=== PATIENT | male | born 1940 | race Caucasian/White ===

== ENCOUNTER 2016-12-18 21:45 | Inpatient (IN) | payer MEDICARE, OTHER ==
[~2016-12-18] VITALS: Ht 180.3 cm; Wt 81.5 kg
[~2016-12-18 21:45] MED LIST: ASPI81TA82 PO; ATOR20TA42 PO; CARV12.52 PO; CEPH500C3 PO; DIGO0.12 PO; HYDR-3129 PO; NITR0.4S SL; PRAS10TA PO; PROSTAB PO
[2016-12-18 21:46] VITALS: RESP 18; O2SAT 100
[2016-12-18 21:48] VITALS: BP 193/103; PULSE 88; RESP 18; O2SAT 98
[2016-12-18] MEDS ORDERED: SODIUM CHLOR 0.9% 1000 ML INJ 1,000 ML IV ONE (21:56)
[2016-12-18 21:57] VITALS: BP 183/85; PULSE 73; RESP 18; O2SAT 98
[2016-12-18] MEDS ORDERED: niCARdipine INJ 25 MG in SODIUM CHLOR 0.9% 250 ML INJ 250 ML IV ONE (22:00)
--- NOTE | 2016-12-18 22:04 | PD ---
HPI Chief Complaint: Neuro Symptoms/ Deficits Time Seen by Provider: 21:56 Travel History International Travel<30 days: No Contact w/Intl Traveler<30days: No Traveled to known affect area: No History of Present Illness HPI The patient is a 76 year old male who presents to the [facility] emergency department with a history of being called in as a stroke alert prior to arrival due to onset of reported "expressive aphasia" 2 hours prior to arrival, at approximately 1945. According to ambulance services the patient's reported that he has not been well over the last 2 days. He has been confused. He has had a reported headache along the left mormonism and nausea. 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 Patient has a history of coronary artery disease status post stent placement and is on an adult aspirin daily and Effient. The patient's blood pressure prior to arrival was reportedly 204/106. The patient's blood sugar prior to arrival was 107. The patient on arrival is awake and alert. The patient reports that his age is 57 and he reports that the year is 1945, however otherwise the patient is oriented and able to speak clearly. He is able to name various objects around the room. The patient is slightly confused and has to be redirected for his neurologic examination, however he is able to follow commands and has strength that is 5 over 5 in all 4 extremities. He has intact sensation over all dermatomes. The patient denies any recent fevers, cough, congestion, neck pain, chest pain, shortness of breath, abdominal pain, vomiting, diarrhea, urinary symptoms, or other neurologic symptoms. 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 Arthritis: Yes (lower back) Asthma: Yes (as a child) Blood Disorders: No Anxiety: No Depression: No Heart Rhythm Problems: Yes Cancer: No Cardiovascular Problems: Yes High Cholesterol: Yes Chemotherapy: No Chest Pain: Yes Congestive Heart Failure: Yes COPD: No Cerebrovascular Accident: No Diminished Hearing: Yes (approx 50% loss bilat/hearing aids at home) Endocrine: No Genitourinary: No Headaches: No Immune Disorder: No Musculoskeletal: No Neurologic: No Psychiatric: No Reproductive: No Respiratory: No Migraines: No Myocardial Infarction: Yes Radiation Therapy: Yes Seizures: No Sleep Apnea: No Past Surgical History Narrative Surgical The patient's past surgical history is significant for an AICD placement, cardiac catheterization with stent placement, prostate cancer surgery. Abdominal Surgery: No Cardiac Surgery: Yes (stents x 2 in lad) Genitourinary Surgery: Yes (prostate) Gynecologic Surgery: No Pacemaker: No Thoracic Surgery: No Social History Alcohol Use: Yes (3-4 beers per day) Tobacco Use: No Substance Use: No Allergies-Medications (Allergen,Severity, Reaction): Coded Allergies: Sudafed (Verified Allergy, Severe, swelling, 12/18/16) Sulfa (Verified Allergy, Severe, 12/18/16) Reported Meds & Prescriptions Reported Meds & Active Scripts Active Reported Digoxin 0.125 Mg Tab 0.125 Mg PO DAILY Atorvastatin (Atorvastatin Calcium) 20 Mg Tab 20 Mg PO HS Effient (Prasugrel) 10 Mg Tab 10 Mg PO DAILY Carvedilol 25 Mg Tab 25 Mg PO BID Ibuprofen 200 Mg Tab 200 Mg PO Q6H PRN Aspirin 81 Mg Tabdr 81 Mg PO DAILY [place]-3 Fish Oil/Vitamin (Fish Oil-Cholecalciferol) 1,000-1,000 Mg Cap 1 Cap PO DAILY Calcium 600 with Vitamin D (Calcium Carbonate-Cholecalciferol) 600-400 mg-Unit Tab 1 Tab PO DAILY Review of Systems Except as stated in HPI: all other systems reviewed are Neg General / Constitutional: No: Fever Eyes: No: Visual changes HENT: Positive: Headaches, No: Congestion, Neck Stiffness, Neck Pain Cardiovascular: No: Chest Pain or Discomfort Respiratory: No: Shortness of Breath Gastrointestinal: Positive: Nausea, Loss of Appetite, No: Vomiting, Diarrhea, Abdominal Pain, Changes in Bowel Habits, Indigestion Genitourinary: No: Dysuria Musculoskeletal: No: Pain Skin: No Rash Neurologic: Positive: Change in Mentation, No: Weakness, Focal Abnormalities, Slurred Speech, Sensory Disturbance Psychiatric: No: Depression Endocrine: No: Polydipsia Hematologic/Lymphatic: No: Easy Bruising Physical Exam Narrative General: The patient is well-developed well-nourished male in no acute distress. Head and Neck exam: Head is normocephalic atraumatic. Eyes: EOMI, pupils are equal round and reactive to light. Nose: Midline septum with pink mucous membranes Mouth: Dentition unremarkable. Moist mucus membranes. Posterior oropharynx is not erythematous. No tonsillar hypertrophy. Uvula midline. Airway patent. Neck: No palpable lymphadenopathy. No nuchal rigidity. No thyromegaly. Cardiovascular: Regular rate and rhythm without murmurs, gallops, or rubs. No pulse deficit to the extremities. Lungs: Clear to auscultation bilaterally. No wheezes, rhonchi, or rales. Abdomen: Soft, without tenderness to palpation in all 4 quadrants of the abdomen. No guarding, rebound, or rigidity. Normal bowel sounds are audible. No tenderness on palpation of McBurney's point. Extremities: No clubbing, cyanosis, or edema. 2+ pulses in all 4 extremities. No calf tenderness on palpation. Back: No costovertebral angle tenderness to palpation. Neurologic Exam: Cranial nerves 2-12 were intact on exam. Strength is 5/5 in all 4 extremities. No sensory deficits noted. No dysdiadochokinesis. Good finger to nose and Heel to ly bilaterally. The patient has to be redirected frequently to follow commands, however he is able to complete his neuro exam. He is able to name various objects around the room. He is able to repeat phrases. The patient is confused as to his age and the year. He is able to name the president. Skin Exam: No rash noted. Intact skin that is warm and dry. Data Data Last Documented VS Vital Signs Date Time Temp Pulse Resp B/P Pulse Ox O2 Delivery O2 Flow Rate FiO2 12/18/16 23:18 70 16 171/80 98 Nasal Cannula 2 Orders Activity Bed Rest (12/18/16 ) Electrocardiogram (12/18/16 ) I-Stat Creatinine (12/18/16 21:56) I-Stat Profile (12/18/16 21:56) Prothrombin Time / Inr (Pt) (12/18/16 21:56) Act Partial Throm Time (Ptt) (12/18/16 21:56) Complete Blood Count With Diff (12/18/16 21:56) Fibrinogen (12/18/16 21:56) Creatine Kinase (Cpk) (12/18/16 21:56) Troponin I (12/18/16 21:56) Ua Includes Microscopic (12/18/16 21:56) Drug Screen, Random Urine (12/18/16 21:56) Type And Screen (12/18/16 21:56) Ct Brain W/O Iv Contrast(Rout) (12/18/16 ) Cta Brain W Iv Contrast W 3d (12/18/16 21:56) Cta Neck W Iv Contrast W 3d (12/18/16 21:56) Consult Neurology (12/18/16 ) Blood Glucose (12/18/16 21:56) Ecg Monitoring (12/18/16 21:56) Neuro Checks Q2HX12,Q4H (12/18/16 21:56) Nursing Bedside Swallow Assess .ONCE (12/18/16 21:56) Iv Access Insert/Monitor (12/18/16 21:56) NPO (12/18/16 21:56) Oximetry (12/18/16 21:56) Oxygen Administration (12/18/16 21:56) Sodium Chlor 0.9% 1000 Ml Inj (Ns 1000 M (12/18/16 21:56) Resp Oxygen Peter C Titrat 1-4 L (12/18/16 21:56) Cath For Specimen (12/18/16 21:56) Nicardipine Inj (Cardene Inj) (12/18/16 22:00) Nicardipine Inj (Cardene Inj) (12/18/16 22:04) Iohexol 350 Inj (Omnipaque 350 Inj) (12/18/16 22:06) (Hub Use Only)Inp Phy Cons/Ref (12/18/16 22:07) Ondansetron Inj (Zofran Inj) (12/18/16 22:11) Morphine Inj (Morphine Inj) (12/18/16 22:45) Ondansetron Inj (Zofran Inj) (12/18/16 22:45) Chest, Single Ap (12/18/16 23:16) Admit Order (Ed Use Only) (12/18/16 23:18) Ammonia (12/18/16 23:18) Hepatic Functional Panel (12/18/16 21:49) Labs Laboratory Tests Test 12/18/16 12/18/16 21:49 23:05 White Blood Count 11.1 TH/MM3 Red Blood Count 4.59 MIL/MM3 Hemoglobin 14.1 GM/DL Hematocrit 40.3 % Mean Corpuscular Volume 87.6 FL Mean Corpuscular Hemoglobin 30.8 PG Mean Corpuscular Hemoglobin 35.1 % Concent Red Cell Distribution Width 13.3 % Platelet Count 292 TH/MM3 Mean Platelet Volume 7.6 FL Neutrophils (%) (Auto) 75.2 % Lymphocytes (%) (Auto) 16.1 % Monocytes (%) (Auto) 6.4 % Eosinophils (%) (Auto) 1.6 % Basophils (%) (Auto) 0.7 % Neutrophils # (Auto) 8.4 TH/MM3 Lymphocytes # (Auto) 1.8 TH/MM3 Monocytes # (Auto) 0.7 TH/MM3 Eosinophils # (Auto) 0.2 TH/MM3 Basophils # (Auto) 0.1 TH/MM3 CBC Comment DIFF FINAL Differential Comment Prothrombin Time 11.3 SEC Prothromb Time International 1.0 RATIO Ratio Activated Partial 28.4 SEC Thromboplast Time Fibrinogen 324 mg/dL Blood Type O POSITIVE Antibody Screen NEGATIVE Bedside Hemoglobin 14.6 G/DL Bedside Hematocrit 43.0 % Bedside Sodium 140 MMOL/L Bedside Potassium 3.7 MMOL/L Bedside Chloride 98 MMOL/L Bedside Blood Urea Nitrogen 13 MG/DL Bedside Creatinine 0.7 MG/DL Bedside Glucose 127 MG/DL Total Bilirubin 0.6 MG/DL Direct Bilirubin 0.1 MG/DL Indirect Bilirubin 0.5 MG/DL Aspartate Amino Transf 18 U/L (AST/SGOT) Alanine Aminotransferase 27 U/L (ALT/SGPT) Alkaline Phosphatase 125 U/L Total Creatine Kinase 86 U/L Troponin I LESS THAN 0.02 NG/ML Total Protein 7.4 GM/DL Albumin 3.9 GM/DL Urine Color LIGHT-YELLOW Urine Turbidity CLEAR Urine pH 8.0 Urine Specific May[place] 1.039 Urine Protein NEG mg/dL Urine Glucose (UA) NEG mg/dL Urine Ketones NEG mg/dL Urine Occult Blood NEG Urine Nitrite NEG Urine Bilirubin NEG Urine Urobilinogen LESS THAN 2.0 MG/DL Urine Leukocyte Esterase NEG Urine RBC 2 /hpf Urine WBC LESS THAN 1 /hpf Urine Opiates Screen NEG Urine Barbiturates Screen NEG Urine Amphetamines Screen NEG Urine Benzodiazepines Screen NEG Urine Cocaine Screen NEG Urine Cannabinoids Screen NEG MDM Medical Screen Exam Complete: Yes Emergency Medical Condition: Yes Medical Record Reviewed: Yes EKG Prior to Arrival: Yes Differential Diagnosis Ischemic stroke, versus intracranial mass, versus delirium related to an infectious process, versus metabolic encephalopathy, versus hypertensive encephalopathy, versus hemorrhagic stroke. Narrative Course During the course of the patients emergency department visit, the patients history, examination, and differential diagnosis were reviewed with the patient. The patient had IV access obtained and blood work sent for analysis. The patient was placed on a can repairer with oximetry and blood pressure monitoring. The patient's head of the bed was placed flat. The patient was started on normal saline at 70 mL per hour. Patient's blood pressure on arrival is 193/103. The patient will be started on a Cardene drip, low dose. The patient was accompanied by me to CT scan. The patient's EKG on arrival reveals a sinus rhythm heart rate of 75, no acute ST segment elevation or depression. T waves are inverted in V4, V5. QRS duration is 93 ms, QTC 403 ms. the patient's case was discussed immediately with . Given the patient's neurologic findings at this time, he agreed that the patient did not have an expressive aphasia. The patient had more of an altered mentation with delirium. However stroke alert was called prior to arrival, therefore we proceeded with imaging. The patient was initially provided normal saline at 70 mL per hour, head of the bed was placed flat. The patients laboratory studies were reviewed and remarkable for white count was 11.1, hemoglobin 14.6, platelets 292 with 75.2 neutrophils, CMP was remarkable for a creatinine of 0.7, glucose 127, liver function tests were remarkable for an alkaline phosphatase of 125, initial set of cardiac enzymes were negative, ammonia level for altered mentation was within normal limits at 17, PT 11.3, PTT 28.4, fibrinogen 320, urine drug screen was negative, urinalysis showed concentrated urine otherwise unremarkable. Radiology studies were reviewed and remarkable for a chest x-ray that shows cardiomegaly and findings of vascular congestion without overt failure. CT scan of the brain shows no acute evidence of bleeding, mild ventriculomegaly that is nonspecific, right maxillary sinus disease. CTA of the brain shows no acute abnormality CTA of the neck shows mild right and minimal left atherosclerosis of the carotid bifurcation without significant narrowing. No dissection or thrombosis, mild and very focal atherosclerosis involving origins of both vertebral arteries without evidence of significant narrowing. The left vertebral artery is dominant. The patient's case was again discussed with Dr. Schwarz. He agreed with the plan to continue the patient on his usual medication regimen including aspirin and Effient. The patient's case was discussed with Dr. Smyth, the patient's primary care physician of record. He did agree to admit the patient for further evaluation and treatment at this time. The patients results were discussed with the patient, including the plan of care. I explained that further testing and/ or monitoring is indicated based on the patients history, examination, and/ or laboratory findings. Therefore, I recommended admission for additional evaluation. The patient expressed understanding and was agreeable with this plan. The patient was admitted to the hospital in guarded condition and sent to a bed under the care of Dr. Smyth Stroke Alert NIHSS NIH Stroke Scale Result: 2 NIHSS Time Completed: 22:[address] Phys[address] Communication [address] Harper, 10:04PM, negative for hemorrhagic stroke. The patient's case is discussed with Dr. Schwarz as stated above in the narrative course. The patient's case is discussed with Dr. Smyth who did agree to admit the patient. Diagnosis Diagnosis: Primary Impression: Altered mental status Qualified Code: R41.0 - Delirium Admitting Physician Requests: Radha Alcaraz MD December 18, 2016 22:04
[2016-12-18 22:05] LABS: AUTOMATED NEUTROPHIL # 8.4 TH/MM3 (1.8-7.7); BASOPHIL # 0.1 TH/MM3 (0-0.2); BASOPHIL % 0.7 % (0.0-2.0); EOSINOPHIL # 0.2 TH/MM3 (0-0.4); EOSINOPHIL % 1.6 % (0.0-4.0); HEMATOCRIT 40.3 % (39.0-51.0); HEMO FLAGS DIFF FINAL; LYMPH % 16.1 % (9.0-44.0); LYMPHOCYTE # 1.8 TH/MM3 (1.0-4.8); MEAN CELL VOLUME 87.6 FL (80.0-100.0); MEAN CORPUSCULAR HEMOGLOBIN 30.8 PG (27.0-34.0); MEAN CORPUSCULAR HGB CONC 35.1 % (32.0-36.0); MONO % 6.4 % (0.0-8.0); NEUT % 75.2 % (16.0-70.0); PLATELET COUNT 292 TH/MM3 (150-450); RED BLOOD COUNT 4.59 MIL/MM3 (4.50-5.90); RED CELL DISTRIBUTION WIDTH 13.3 % (11.6-17.2); WHITE BLOOD COUNT 11.1 TH/MM3 (4.0-11.0)
[2016-12-18] MEDS ORDERED: IOHEXOL 350 MG/ML 10 ML VIAL (for RAD DIAG) IV ONE (22:06)
--- NOTE | 2016-12-18 22:08 | RADRPT ---
EXAM DATE/TIME: 12/18/2016 21:58 [facility] COMPARISON: No previous studies available for comparison. INDICATIONS : Stroke alert; expressive aphasia and confusion. RADIATION DOSE: 53.04 CTDIvol (mGy) This report was called by Dr. Harper to Dr. Morales at 10: 03 PM MEDICAL HISTORY : None SURGICAL HISTORY : None. ENCOUNTER: Initial ACUITY: 1 day PAIN SCALE: 0/10 LOCATION: cranial TECHNIQUE: Multiple contiguous axial images were obtained of the head. Using automated exposure control and adj ustment of the mA and/or kV according to patient size, radiation dose was kept as low as reasonably a chievable to obtain optimal diagnostic quality images. FINDINGS: No intracranial hemorrhage or hematoma. No mass, mass effect or midline shift. Subcentimeter lacunar infarcts are seen of the periventricular white matter and near the genu of the corpus callosum. Mild ventriculomegaly. No evidence of an acute or subacute infarction. There is mucoperiosteal thickening at the floor of the visualized right maxillary air cell. CONCLUSION: 1. No bleed or other acute intracranial abnormality demonstrated. 2. Mild ventriculomegaly, nonspecific. 3. Right maxillary sinus disease. Wisam Harper MD on December 18, 2016 at 22:03 Board Certified Radiologist. This report was verified electronically.
[2016-12-18] MEDS ORDERED: ONDANSETRON HCL 4 MG/2 ML VIAL ONE (22:11)
[2016-12-18 22:14] VITALS: BP 205/87; PULSE 79; RESP 18; O2SAT 100
--- NOTE | 2016-12-18 22:24 | RADRPT ---
EXAM DATE/TIME: 12/18/2016 22:03 [facility] COMPARISON: No previous studies available for comparison. INDICATIONS : Stroke alert; expressive aphasia and confusion. IV CONTRAST: 100 cc Omnipaque 350 (iohexol) IV ; Cumulative dose for multiple exams. RADIATION DOSE: 28.83 CTDIvol (mGy) ; Combined studies MEDICAL HISTORY : None SURGICAL HISTORY : None. ENCOUNTER: Initial ACUITY: 1 day PAIN SCALE: 0/10 LOCATION: cranial TECHNIQUE: Volumetric scanning was performed using a multi-row detector CT scanner. The data was post processed with a variety of visualization algorithms including full volume maximum intensity projection, multi -planar sliding thin slab reformation, curved planar reformation, and surface rendering techniques. Using automated exposure control and adjustment of the mA and/or kV according to patient size, radiat ion dose was kept as low as reasonably achievable to obtain optimal diagnostic quality images. FINDINGS: There is excellent visualization of the major intracranial arteries out to the second-order branch ve ssels. There is no evidence for aneurysm, vessel truncation or stenosis, and no evidence for vascula r malformation. CONCLUSION: Normal intracranial arteries. No thrombosis. Wisam Harper MD on December 18, 2016 at 22:22 Board Certified Radiologist. This report was verified electronically.
[2016-12-18] MEDS ORDERED: DIGO0.12 PO (22:26)
[2016-12-18] MEDS ORDERED: IBUP200T2 PO (22:26)
[2016-12-18] MEDS ORDERED: PRAS10TA PO (22:26)
[2016-12-18] MEDS ORDERED: CARV25TA PO (22:26)
[2016-12-18] MEDS ORDERED: OMEGCAP PO (22:26)
[2016-12-18] MEDS ORDERED: CALC1TAB87 PO (22:26)
[2016-12-18] MEDS ORDERED: ASPI1TAB69 PO (22:26)
[2016-12-18] MEDS ORDERED: ATOR20TA15 PO (22:26)
[2016-12-18 22:30] LABS: I-STAT POTASSIUM 3.7 MMOL/L (3.5-4.9); I-STAT SODIUM 140 MMOL/L (138-146)
[2016-12-18 22:31] LABS: APTT (PATIENT) 28.4 SEC (24.3-30.1); CREATINE KINASE 86 U/L (39-308); PROTHROMBIN TIME - PATIENT 11.3 SEC (9.8-11.6)
[2016-12-18] MEDS ORDERED: ONDANSETRON HCL 4 MG/2 ML VIAL IV PUSH ONE (22:45)
[2016-12-18] MEDS ORDERED: MORPHINE SULFATE 4 MG/ML INJ IV PUSH ONE (22:45)
--- NOTE | 2016-12-18 22:48 | RADRPT ---
EXAM DATE/TIME: 12/18/2016 22:03 [facility] COMPARISON: No previous studies available for comparison. INDICATIONS : Stroke alert; expressive aphasia and confusion. IV CONTRAST: 100 cc Omnipaque 350 (iohexol) IV ; Cumulative dose for multiple exams. RADIATION DOSE: 28.83 CTDIvol (mGy) ; Combined studies MEDICAL HISTORY : None SURGICAL HISTORY : None. ENCOUNTER: Initial ACUITY: 1 day PAIN SCALE: 0/10 LOCATION: neck Elevated flow velocities and ICA/CCA ratios have been found to correlate with increased degrees of vessel stenosis, calculated as percentage of diameter relative to a normal segment of distal ICA/CCA. TECHNIQUE: Volumetric scanning was performed using a multirow detector CT scanner. The data was post processed with a variety of visualization algorithms including full-volume maximum intensity projection, multip lanar sliding thin-slab reformation, curved-planar reformation, and surface-rendering techniques. Us ing automated exposure control and adjustment of the mA and/or kV according to patient size, radiatio n dose was kept as low as reasonably achievable to obtain optimal diagnostic quality images. FINDINGS: AORTIC ARCH: There is a three-vessel origin of the great vessels from the aorta. No evidence of ostial narrowing. RIGHT CAROTID: The common carotid artery is intact. The carotid bulb has a normal configuration without ulceration o r narrowing. Mild soft and calcified plaque seen of the proximal internal carotid artery with an appr oximately 5 mm long 30% or less narrowing. LEFT CAROTID: The common carotid artery is intact. Minimal plaque seen in the bulb and proximal internal carotid ar mika without perceptible narrowing. The external carotid artery is intact. VERTEBRALS: Mild plaque at both origins without significant stenosis. Left vertebral artery is dominant. CONCLUSION: 1. Mild right and minimal left atherosclerosis of the carotid bifurcations without significant narrow ing. 2. No dissection or thrombosis. 3. Mild and very focal atherosclerosis involving the origins of both vertebral arteries without evide nce of significant narrowing. The left vertebral artery is dominant. Wisam Harper MD on December 18, 2016 at 22:43 Board Certified Radiologist. This report was verified electronically.
[2016-12-18 23:18] VITALS: BP 171/80; PULSE 70; RESP 16; O2SAT 98
[2016-12-18 23:32] LABS: BLOOD, URINE NEG (NEG); GLUCOSE,URINE NEG (NEG); KETONE, URINE NEG (NEG); NITRITE,URINE NEG (NEG); URINE COLOR LIGHT-YELLOW (YELLW/STRAW)
[2016-12-18 23:38] LABS: AMPHETAMINE, URINE NEG (NEG); BARBITURATES, URINE NEG (NEG); COCAINE, URINE NEG (NEG)
--- NOTE | 2016-12-18 23:44 | RADRPT ---
EXAM DATE/TIME: 12/18/2016 23:20 [facility] COMPARISON: No previous studies available for comparison. INDICATIONS : Altered Mental Status. MEDICAL HISTORY : None. SURGICAL HISTORY : Pacemaker. ENCOUNTER: Initial ACUITY: 1 day PAIN SCORE: 0/10 LOCATION: Bilateral chest FINDINGS: The cardiac silhouette is enlarged in transverse diameter. A defibrillator device is in place via a l eft sided approach. There is prominence of the central pulmonary vasculature with indistinct vascular margins compatible with vascular congestion but no evidence of overt failure. No pleural effusions a re identified. CONCLUSION: 1. Cardiomegaly and findings of vascular congestion without overt failure. Cosme Hicks MD on December 18, 2016 at 23:41 Board Certified Radiologist. This report was verified electronically.
[2016-12-18 23:57] LABS: AST (GOT) 18 U/L (15-37)
[2016-12-18 23:58] LABS: TOTAL BILIRUBIN ADULT 0.6 MG/DL (0.2-1.0)
[2016-12-19] VITALS (15 sets, daily range): BP systolic 124–180; BP diastolic 55–78; PULSE 60–84; RESP 16–21; TEMP 97.8–99.2; O2SAT 94–98
[2016-12-19] MEDS ORDERED: SODIUM CHLORIDE 0.9% FLUSH 10 ML FLUSH IV FLUSH PRN
[2016-12-19] MEDS ORDERED: NALOXONE HCL 0.4 MG/ML AMP IV PRN
[2016-12-19] MEDS ORDERED: ACETAMINOPHEN 325 MG TAB PO PRN
[2016-12-19 00:10] LABS: ALT (GPT) 27 U/L (12-78); INDIRECT BILIRUBIN 0.5 MG/DL (0.0-0.8)
[2016-12-19 00:11] LABS: ALKALINE PHOSPHATASE 125 U/L (45-117)
[2016-12-19] MEDS ORDERED: niCARdipine INJ 25 MG in SODIUM CHLOR 0.9% 250 ML INJ 250 ML IV ONE (00:30)
[2016-12-19 03:45] LABS: AUTOMATED NEUTROPHIL # 9.6 TH/MM3 (1.8-7.7); BASOPHIL # 0.1 TH/MM3 (0-0.2); BASOPHIL % 0.6 % (0.0-2.0); EOSINOPHIL % 0.3 % (0.0-4.0); HEMATOCRIT 38.9 % (39.0-51.0); HEMO FLAGS DIFF FINAL; LYMPH % 12.8 % (9.0-44.0); LYMPHOCYTE # 1.5 TH/MM3 (1.0-4.8); MEAN CELL VOLUME 87.4 FL (80.0-100.0); MEAN CORPUSCULAR HEMOGLOBIN 30.5 PG (27.0-34.0); MEAN CORPUSCULAR HGB CONC 34.9 % (32.0-36.0); MONO % 5.3 % (0.0-8.0); PLATELET COUNT 277 TH/MM3 (150-450); RED BLOOD COUNT 4.45 MIL/MM3 (4.50-5.90); RED CELL DISTRIBUTION WIDTH 13.6 % (11.6-17.2); WHITE BLOOD COUNT 11.8 TH/MM3 (4.0-11.0)
[2016-12-19 04:10] LABS: ALT (GPT) 22 U/L (12-78); ANION GAP 8 MEQ/L (5-15); AST (GOT) 16 U/L (15-37); BICARBONATE 26.7 MEQ/L (21.0-32.0); BLOOD UREA NITROGEN 11 MG/DL (7-18); CHLORIDE 102 MEQ/L (98-107); GLOMERULAR FILTRATION RATE 101 ML/MIN (>89); POTASSIUM 3.7 MEQ/L (3.5-5.1); SODIUM (NA) 137 MEQ/L (136-145)
[2016-12-19 04:12] LABS: ALKALINE PHOSPHATASE 108 U/L (45-117); TOTAL BILIRUBIN ADULT 0.7 MG/DL (0.2-1.0)
[2016-12-19] MEDS: ASPIRIN EC 81 MG TABEC PO SCH (08:29)
[2016-12-19] MEDS: SODIUM CHLORIDE 0.9% FLUSH 10 ML FLUSH IV FLUSH SCH ×2 (08:29→19:49)
[2016-12-19] MEDS: DIGOXIN 0.125 MG TAB PO SCH (08:29)
[2016-12-19] MEDS: PRASUGREL 10 MG TAB PO SCH (08:29)
[2016-12-19] MEDS: CARVEDILOL 12.5 MG TAB PO SCH ×2 (08:29→19:49)
--- NOTE | 2016-12-19 11:44 | HHI.HP ---
History of Present Illness Service Family Medicine Primary Care Physician Fredo Gandara M.D. Admission Diagnosis AMS, Delirium Diagnoses: History of Present Illness The patient is a 76 year old male who presents to the [facility] emergency department due to onset of reported expressive aphasia 2 hours prior to arrival according to records the patient's reported that he has not been well over the last 2 days. He has been confused. He has had a reported headache along the left spiritism and nausea. 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 Patient has a history of coronary artery disease status post stent placement and is on an adult aspirin daily and Effient. The patient's blood pressure prior to arrival to ER was reportedly 204/106. The The patient is awake and alert oriented except for year. The patient denies any recent fevers, cough, congestion, neck pain, chest pain, shortness of breath, abdominal pain, vomiting, diarrhea, urinary symptoms, or other neurologic symptoms. Review of Systems Constitutional: DENIES: Chills, Dizziness Respiratory: DENIES: Cough, Wheezing, Sputum production Cardiovascular: DENIES: Chest pain, Palpitations Gastrointestinal: DENIES: Constipation, Diarrhea, Nausea, Vomiting Musculoskeletal: DENIES: Stiffness, Back pain Neurologic: COMPLAINS OF: Localized weakness Psychiatric: COMPLAINS OF: Confusion, DENIES: Depression Past Family Social History Allergies: Coded Allergies: Sudafed (Verified Allergy, Severe, swelling, 12/18/16) Sulfa (Verified Allergy, Severe, 12/18/16) Past Medical History Arthritis: Yes (lower back) Heart Rhythm Problems: Yes High Cholesterol: Yes Chest Pain: Yes Congestive Heart Failure: Yes Diminished Hearing: Yes (approx 50% loss bilat/hearing aids at home) Myocardial Infarction: Yes Radiation Therapy: Yes Past Surgical History The patient's past surgical history is significant for an AICD placement, cardiac catheterization with stent placement, prostate cancer surgery. Genitourinary Surgery: Yes (prostate) Reported Medications Laboratory Tests Test 12/18/16 12/18/16 12/19/16 21:49 23:05 02:54 White Blood Count 11.1 TH/MM3 11.8 TH/MM3 (4.0-11.0) (4.0-11.0) Neutrophils (%) (Auto) 75.2 % 81.0 % (16.0-70.0) (16.0-70.0) Neutrophils # (Auto) 8.4 TH/MM3 9.6 TH/MM3 (1.8-7.7) (1.8-7.7) Bedside Creatinine 0.7 MG/DL (0.8-1.3) Bedside Glucose 127 MG/DL (60-95) Alkaline Phosphatase 125 U/L (45-117) Troponin I LESS THAN 0.02 NG/ML (0.02-0.05) Urine Specific [place] 1.039 (1.002-1.035) Red Blood Count 4.45 MIL/MM3 (4.50-5.90) Hematocrit 38.9 % (39.0-51.0) Random Glucose 148 MG/DL (74-106) Calcium Level 8.1 MG/DL (8.5-10.1) Active Ordered Medications Current Medications Medications (Trade) Dose Ordered Sig/Sandhya Route Start Time Stop Time Status Last Admin (NS 1000 ml Inj) 1,000 ml @ 70 mls/hr [id number] ONCE IV 12/18/16 21:56 12/19/16 12:13 12/18/16 22:49 (NS Flush) 2 ml UNSCH PRN IV FLUSH 12/19/16 00:00 (NS Flush) 2 ml BID IV FLUSH 12/19/16 09:00 12/19/16 08:29 (Tylenol) 650 mg Q4H PRN PO 12/19/16 00:00 (Narcan Inj) 0.4 mg UNSCH PRN IV 12/19/16 00:00 (Ecotrin Ec) 81 mg DAILY PO 12/19/16 09:00 12/19/16 08:29 (Lipitor) 20 mg HS PO 12/19/16 21:00 (Coreg) 25 mg BID PO 12/19/16 09:00 12/19/16 08:29 (Lanoxin) 0.125 mg DAILY PO 12/19/16 09:00 12/19/16 08:29 (Effient) 10 mg DAILY PO 12/19/16 09:00 12/19/16 08:29 Family History Mother and father non contributory Social History Quit smoking over 25 years ago ETOH: daily up to 4 drinks per day 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 Vital Signs Vital Signs Date Time Temp Pulse Resp B/P Pulse Ox O2 Delivery O2 Flow Rate FiO2 12/19/16 08:00 69 12/19/16 08:00 98.1 68 18 143/64 94 12/19/16 07:00 94 Room Air 12/19/16 06:00 68 12/19/16 04:00 66 12/19/16 04:00 98.6 66 20 124/55 97 12/19/16 02:00 84 12/19/16 01:35 99.2 84 20 136/68 96 12/19/16 01:35 96 Nasal Cannula 2.00 12/19/16 01:35 96 Nasal Cannula 2.00 12/19/16 00:57 78 18 159/64 98 Nasal Cannula 2 12/19/16 00:28 99.1 71 17 180/78 98 Nasal Cannula 2 12/18/16 23:18 70 16 171/80 98 Nasal Cannula 2 12/18/16 22:14 79 18 205/87 100 Nasal Cannula 2 12/18/16 21:57 73 18 183/85 98 Nasal Cannula 2 12/18/16 21:48 88 18 193/103 98 12/18/16 21:46 18 100 Nasal Cannula 2 12/18/16 21:46 100 Nasal Cannula 2 Physical Exam GENERAL: This is a well-nourished, well-developed patient, in no apparent distress. SKIN: No rashes, ecchymoses or lesions. Cool and dry. EYES: Pupils equal round and reactive. No injection or drainage. CARDIOVASCULAR: Regular rate and rhythm without murmurs, gallops, or rubs. RESPIRATORY: Clear to auscultation. Breath sounds equal bilaterally. No wheezes , rales, or rhonchi. GASTROINTESTINAL: Abdomen soft, non-tender, nondistended. MUSCULOSKELETAL: Extremities without cyanosis or edema. No joint tenderness, effusion, or edema noted. No calf tenderness. Negative Homans sign bilaterally. NEUROLOGICAL: Awake and alert. Normal speech. Laboratory Laboratory Tests Test 12/18/16 12/18/16 12/18/16 12/19/16 21:49 23:05 23:39 01:45 White Blood Count 11.1 Red Blood Count 4.59 Hemoglobin 14.1 Hematocrit 40.3 Mean Corpuscular Volume 87.6 Mean Corpuscular Hemoglobin 30.8 Mean Corpuscular Hemoglobin 35.1 Concent Red Cell Distribution Width 13.3 Platelet Count 292 Mean Platelet Volume 7.6 Neutrophils (%) (Auto) 75.2 Lymphocytes (%) (Auto) 16.1 Monocytes (%) (Auto) 6.4 Eosinophils (%) (Auto) 1.6 Basophils (%) (Auto) 0.7 Neutrophils # (Auto) 8.4 Lymphocytes # (Auto) 1.8 Monocytes # (Auto) 0.7 Eosinophils # (Auto) 0.2 Basophils # (Auto) 0.1 CBC Comment DIFF FINAL Differential Comment Prothrombin Time 11.3 Prothromb Time International 1.0 Ratio Activated Partial 28.4 Thromboplast Time Fibrinogen 324 Blood Type O POSITIVE Antibody Screen NEGATIVE Bedside Hemoglobin 14.6 Bedside Hematocrit 43.0 Bedside Sodium 140 Bedside Potassium 3.7 Bedside Chloride 98 Bedside Blood Urea Nitrogen 13 Bedside Creatinine 0.7 Bedside Glucose 127 Total Bilirubin 0.6 Direct Bilirubin 0.1 Indirect Bilirubin 0.5 Aspartate Amino Transf 18 (AST/SGOT) Alanine Aminotransferase 27 (ALT/SGPT) Alkaline Phosphatase 125 Total Creatine Kinase 86 Troponin I LESS THAN 0.02 Total Protein 7.4 Albumin 3.9 Urine Color LIGHT-YELLOW Urine Turbidity CLEAR Urine pH 8.0 Urine Specific [place] 1.039 Urine Protein NEG Urine Glucose (UA) NEG Urine Ketones NEG Urine Occult Blood NEG Urine Nitrite NEG Urine Bilirubin NEG Urine Urobilinogen LESS THAN 2.0 Urine Leukocyte Esterase NEG Urine RBC 2 Urine WBC LESS THAN 1 Urine Opiates Screen NEG Urine Barbiturates Screen NEG Urine Amphetamines Screen NEG Urine Benzodiazepines Screen NEG Urine Cocaine Screen NEG Urine Cannabinoids Screen NEG Ammonia 17 Nasal Screen MRSA (PCR) MRSA NOT DETECTED Test 12/19/16 02:54 White Blood Count 11.8 Red Blood Count 4.45 Hemoglobin 13.6 Hematocrit 38.9 Mean Corpuscular Volume 87.4 Mean Corpuscular Hemoglobin 30.5 Mean Corpuscular Hemoglobin 34.9 Concent Red Cell Distribution Width 13.6 Platelet Count 277 Mean Platelet Volume 8.0 Neutrophils (%) (Auto) 81.0 Lymphocytes (%) (Auto) 12.8 Monocytes (%) (Auto) 5.3 Eosinophils (%) (Auto) 0.3 Basophils (%) (Auto) 0.6 Neutrophils # (Auto) 9.6 Lymphocytes # (Auto) 1.5 Monocytes # (Auto) 0.6 Eosinophils # (Auto) 0.0 Basophils # (Auto) 0.1 CBC Comment DIFF FINAL Differential Comment Sodium Level 137 Potassium Level 3.7 Chloride Level 102 Carbon Dioxide Level 26.7 Anion Gap 8 Blood Urea Nitrogen 11 Creatinine 0.75 Estimat Glomerular Filtration 101 Rate Random Glucose 148 Calcium Level 8.1 Total Bilirubin 0.7 Aspartate Amino Transf 16 (AST/SGOT) Alanine Aminotransferase 22 (ALT/SGPT) Alkaline Phosphatase 108 Total Protein 6.6 Albumin 3.5 Result Diagram: 12/19/16 0254 12/19/16 0254 Imaging Last 72 hours Impressions Chest X-Ray 12/18/166 Signed Impressions: Service Date/Time: Sunday, December 18, 2016 23:20 - CONCLUSION: 1. Cardiomegaly and findings of vascular congestion without overt failure. Cosme Hicks MD Neck CTA 12/18/162155 Signed Impressions: Service Date/Time: Sunday, December 18, 2016 22:03 - CONCLUSION: 1. Mild right and minimal left atherosclerosis of the carotid bifurcations without significant narrowing. 2. No dissection or thrombosis. 3. Mild and very focal atherosclerosis involving the origins of both vertebral arteries without evidence of significant narrowing. The left vertebral artery is dominant. Wisam Harper MD Head CTA 12/18/162155 Signed Impressions: Service Date/Time: Sunday, December 18, 2016 22:03 - CONCLUSION: Normal intracranial arteries. No thrombosis. Wisam Harper MD Head CT 12/18/16 0000 Signed Impressions: Service Date/Time: Sunday, December 18, 2016 21:58 - CONCLUSION: 1. No bleed or other acute intracranial abnormality demonstrated. 2. Mild ventriculomegaly, nonspecific. 3. Right maxillary sinus disease. Wisam Harper MD Assessment and Plan Problem List: (1) Altered mental status Status: Acute Plan: Patient is alert and cooperative. Oriented to person and place. Neurology consulted. Head CT with no acute findings. (2) Hypertension Status: Acute Plan: Continue current treatment. B/P 124/55. Cardene gtt last night. (3) Hyperlipidemia Status: Acute Plan: continue statin. Lipid panel ordered (4) CHF (congestive heart failure) Status: Acute Plan: No SOB or edema. Defibrillator Assessment and Plan Assessment and plan discussed with Dr. Smyth Discussed Condition With Nursing Francoise Hamilton December 19, 2016 11:44
--- NOTE | 2016-12-19 11:59 | EKG ---
Date Performed: 12/18/2016 Time Performed: 21:50:00 PTAGE: 76 years EKG: Sinus rhythm POSSIBLE ANTERIOR MYOCARDIAL INFARCTION, AGE UNDETERMINED ANTEROLATERAL ST/T WAVE ABNORMALITY, CONSI BUNNY ISCHEMIA PREVIOUS TRACING : 06/30/2015 13.09 No significant change from previous tracing noted. DOCTOR: Yoni Tello Interpretating Date/Time 12/19/2016 11:57:41
--- NOTE | 2016-12-19 16:56 | HHI.FF ---
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 My clinical findings support the need for the requested home health care services because: Deconditioned w/ increased weakness Limited ability to care for self Need for psychosocial assistance Impaired cognition/judgement I certify that my clinical findings support that this patient is homebound because: Impaired cognitive ability/safety Unsteady gait/balance Need for psychosocial assistance Francoise Hamilton December 19, 2016 16:56
[2016-12-19] MEDS: ENALAPRILAT 2.5 MG/2 ML VIAL IV PUSH PRN (19:40)
[2016-12-19] MEDS: ATORVASTATIN 20 MG TAB PO SCH (19:49)
[2016-12-20] VITALS (10 sets, daily range): BP systolic 156–182; BP diastolic 70–88; PULSE 60–68; RESP 15–27; TEMP 97.7–98.3; O2SAT 93–99
[2016-12-20] MEDS: ENALAPRILAT 2.5 MG/2 ML VIAL IV PUSH PRN ×3 (01:11→20:54)
[2016-12-20 04:34] LABS: AUTOMATED NEUTROPHIL # 5.4 TH/MM3 (1.8-7.7); BASOPHIL # 0.1 TH/MM3 (0-0.2); BASOPHIL % 0.6 % (0.0-2.0); EOSINOPHIL # 0.2 TH/MM3 (0-0.4); EOSINOPHIL % 2.9 % (0.0-4.0); HEMATOCRIT 38.1 % (39.0-51.0); HEMO FLAGS DIFF FINAL; LYMPH % 24.2 % (9.0-44.0); LYMPHOCYTE # 2.1 TH/MM3 (1.0-4.8); MEAN CELL VOLUME 87.7 FL (80.0-100.0); MEAN CORPUSCULAR HEMOGLOBIN 30.2 PG (27.0-34.0); MEAN CORPUSCULAR HGB CONC 34.4 % (32.0-36.0); MONO % 8.5 % (0.0-8.0); NEUT % 63.8 % (16.0-70.0); PLATELET COUNT 231 TH/MM3 (150-450); RED BLOOD COUNT 4.34 MIL/MM3 (4.50-5.90); RED CELL DISTRIBUTION WIDTH 13.5 % (11.6-17.2); WHITE BLOOD COUNT 8.5 TH/MM3 (4.0-11.0)
[2016-12-20 04:54] LABS: ANION GAP 7 MEQ/L (5-15); BICARBONATE 28.4 MEQ/L (21.0-32.0); BLOOD UREA NITROGEN 11 MG/DL (7-18); CHLORIDE 108 MEQ/L (98-107); GLOMERULAR FILTRATION RATE 117 ML/MIN (>89); MAGNESIUM 2.1 MG/DL (1.5-2.5); POTASSIUM 3.6 MEQ/L (3.5-5.1); SODIUM (NA) 143 MEQ/L (136-145)
[2016-12-20 04:57] LABS: HDL CHOLESTEROL 33.4 MG/DL (40.0-60.0); LDL CHOLESTEROL 59 MG/DL (0-99)
[2016-12-20] MEDS ORDERED: AMLO10TA2 PO (07:47)
--- NOTE | 2016-12-20 07:50 | HHI.PR ---
Subjective Remarks Patient seen at bedside. In good spirits. VSS and afebrile. Denies any CP or SOB. Speech clear Objective Vital Signs Date Time Temp Pulse Resp B/P Pulse Ox O2 Delivery O2 Flow Rate FiO2 12/20/16 06:00 62 12/20/16 04:00 98.1 60 18 159/74 94 12/20/16 04:00 60 12/20/16 02:00 60 12/20/16 00:00 98.3 60 18 156/70 93 12/20/16 00:00 60 12/19/16 22:00 60 12/19/16 20:15 94 21 12/19/16 20:00 60 12/19/16 20:00 98.3 60 21 160/71 95 12/19/16 19:00 95 Room Air 12/19/16 18:00 60 12/19/16 16:00 60 12/19/16 16:00 97.8 60 16 143/65 95 12/19/16 14:00 60 12/19/16 12:00 98.2 61 16 142/65 95 12/19/16 12:00 60 12/19/16 10:00 64 12/19/16 08:00 69 12/19/16 08:00 98.1 68 18 143/64 94 I/O 12/19/16 12/19/16 12/19/16 12/20/16 12/20/16 12/20/16 07:00 15:00 23:00 07:00 15:00 23:00 Intake Total 479 ml 987 ml 850 ml 324 ml Output Total 1100 ml 850 ml 725 ml 400 ml Balance -621 ml 137 ml 125 ml -76 ml Intake Oral 0 ml 360 ml 360 ml 240 ml IV Total 479 ml 627 ml 490 ml 84 ml Output Urine Total 1100 ml 850 ml 725 ml 400 ml # Voids 1 # Bowel Movements 0 0 0 Result Diagram: 12/20/16 0332 12/20/16 033 Imaging Last 72 hours Impressions Chest X-Ray 12/18/16 0514 Signed Impressions: Service Date/Time: Sunday, December 18, 2016 23:20 - CONCLUSION: 1. Cardiomegaly and findings of vascular congestion without overt failure. Cosme iHcks MD Neck CTA 12/18/16 1910 Signed Impressions: Service Date/Time: Sunday, December 18, 2016 22:03 - CONCLUSION: 1. Mild right and minimal left atherosclerosis of the carotid bifurcations without significant narrowing. 2. No dissection or thrombosis. 3. Mild and very focal atherosclerosis involving the origins of both vertebral arteries without evidence of significant narrowing. The left vertebral artery is dominant. Wisam Harper MD Head CTA 12/18/16 2156 Signed Impressions: Service Date/Time: Sunday, December 18, 2016 22:03 - CONCLUSION: Normal intracranial arteries. No thrombosis. Wisam Harper MD Head CT 12/18/16 0000 Signed Impressions: Service Date/Time: Sunday, December 18, 2016 21:58 - CONCLUSION: 1. No bleed or other acute intracranial abnormality demonstrated. 2. Mild ventriculomegaly, nonspecific. 3. Right maxillary sinus disease. Wisam Harper MD Objective Remarks GENERAL: alert and cooperative SKIN: Warm and dry. HEAD: Normocephalic. EYES: No scleral icterus. No injection or drainage. NECK: Supple, trachea midline. No JVD or lymphadenopathy. CARDIOVASCULAR: Regular rate and rhythm without murmurs, gallops, or rubs. RESPIRATORY: Breath sounds equal bilaterally. No accessory muscle use. GASTROINTESTINAL: Abdomen soft, non-tender, nondistended. MUSCULOSKELETAL: No cyanosis, or edema. BACK: Nontender without obvious deformity. No CVA tenderness. Medications and IVs Current Medications Medications (Trade) Dose Ordered Sig/Sandhya Route Start Time Stop Time Status Last Admin (NS Flush) 2 ml UNSCH PRN IV FLUSH 12/19/16 00:00 (NS Flush) 2 ml BID IV FLUSH 12/19/16 09:00 12/19/16 19:49 (Tylenol) 650 mg Q4H PRN PO 12/19/16 00:00 (Narcan Inj) 0.4 mg UNSCH PRN IV 12/19/16 00:00 (Ecotrin Ec) 81 mg DAILY PO 12/19/16 09:00 12/19/16 08:29 (Lipitor) 20 mg HS PO 12/19/16 21:00 12/19/16 19:49 (Coreg) 25 mg BID PO 12/19/16 09:00 12/19/16 19:49 (Lanoxin) 0.125 mg DAILY PO 12/19/16 09:00 12/19/16 08:29 (Effient) 10 mg DAILY PO 12/19/16 09:00 12/19/16 08:29 (Vasotec Inj) 2.5 mg Q4H PRN IV PUSH 12/19/16 19:30 12/20/16 01:11 (Oscal) 1,000 mg BID PO 12/20/16 09:00 UNV Assessment and Plan Problem List: (1) Altered mental status Status: Acute Plan: Patient is alert and cooperative. Oriented to person and place. Neurology consulted and pending. Discussed with nursing to contact office. Head CT with no acute findings. (2) Hypertension Status: Acute Plan: Continue current treatment. B/P 159/74. Amlodipine added. Cardene gtt on admission (3) Hyperlipidemia Status: Acute Plan: continue statin. Lipid panel ordered (4) CHF (congestive heart failure) Status: Acute Plan: No SOB or edema. Defibrillator Assessment and Plan Assessment and plan discussed with Dr. Smyth Discussed Condition With Nursing Discharge Planning Home with [facility] Physician Attestation The exam, history, and the medical decision-making described in the above note were completed with the assistance of the mid-level provider. I reviewed and agree with the findings presented. I attest that I had a [id number] encounter with the patient on the same day, and personally performed and documented my assessment and findings in the medical record. Problem Qualifiers (1) Altered mental status: Qualified Code: R41.0 - Delirium (2) Hypertension: Qualified Code: I10 - Essential hypertension (3) Hyperlipidemia: Qualified Code: E78.5 - Hyperlipidemia, unspecified hyperlipidemia type (4) CHF (congestive heart failure): Francoise Hamilton December 20, 2016 07:50 Cullen Smyth DO December 20, 2016 17:22
[2016-12-20 07:58] LABS: HEMOGLOBIN A1a 0.8 %; HEMOGLOBIN A1b 1.5 %; HEMOGLOBIN Ao 86.2 %; HEMOGLOBIN LA1C 1.8 %; HEMOGLOBIN P3 3.7 %
[2016-12-20] MEDS ORDERED: SODIUM PHOSPHATE INJ 15 MMOL in SODIUM CHLORIDE 0.9% INJ 150 ML IV ONE (08:00)
[2016-12-20] MEDS: CALCIUM CARBONATE 1.25 GM (CA 500 MG) TAB PO SCH ×2 (08:47→20:53)
[2016-12-20] MEDS: SODIUM CHLORIDE 0.9% FLUSH 10 ML FLUSH IV FLUSH SCH ×2 (08:47→20:54)
[2016-12-20] MEDS: PRASUGREL 10 MG TAB PO SCH (08:48)
[2016-12-20] MEDS: DIGOXIN 0.125 MG TAB PO SCH (08:48)
[2016-12-20] MEDS: CARVEDILOL 12.5 MG TAB PO SCH ×2 (08:48→20:54)
[2016-12-20] MEDS: ASPIRIN EC 81 MG TABEC PO SCH (08:48)
--- NOTE | 2016-12-20 17:02 | PD.CONS ---
History of Present Illness Service Neurology Consult Requested By medical Reason for Consult stroke/tia Primary Care Physician Fredo Gandara M.D. History of Present Illness 76 year old male admitted for confusion x 2 days prior to arrival, not speaking well. He has improved since admission. Patient has a history of coronary artery disease status post stent, on aspirin daily and Effient. has been seeing his urologist for prostate cancer tx's. states he had a similar episode of confusion and incontinence occur 6 months ago[address] he [address] not drive. er md spoke with Dr. Schwarz on 12/18. not considered a tpa candidate. apparently, the consult did not roll over to the next person and is now received by ma. 193/103. gluocse 127 ct brain naicp. cta brain/carotid no significant occlusion Review of Systems as above and admit hp Past Family Social History Allergies: Coded Allergies: Sudafed (Verified Allergy, Severe, swelling, 12/18/16) Sulfa (Verified Allergy, Severe, 12/18/16) Past Medical History Arthritis: Yes (lower back) Heart Rhythm Problems: Yes High Cholesterol: Yes Chest Pain: Yes Congestive Heart Failure: Yes Diminished Hearing: Yes (approx 50% loss bilat/hearing aids at home) Myocardial Infarction: Yes Radiation Therapy: Yes Past Surgical History The patient's past surgical history is significant for an AICD placement, cardiac catheterization with stent placement, prostate cancer surgery. Genitourinary Surgery: Yes (prostate) Reported Medications Laboratory Tests Test 12/18/16 12/18/16 12/19/16 21:49 23:05 02:54 White Blood Count 11.1 TH/MM3 11.8 TH/MM3 (4.0-11.0) (4.0-11.0) Neutrophils (%) (Auto) 75.2 % 81.0 % (16.0-70.0) (16.0-70.0) Neutrophils # (Auto) 8.4 TH/MM3 9.6 TH/MM3 (1.8-7.7) (1.8-7.7) Bedside Creatinine 0.7 MG/DL (0.8-1.3) Bedside Glucose 127 MG/DL (60-95) Alkaline Phosphatase 125 U/L (45-117) Troponin I LESS THAN 0.02 NG/ML (0.02-0.05) Urine Specific [place] 1.039 (1.002-1.035) Red Blood Count 4.45 MIL/MM3 (4.50-5.90) Hematocrit 38.9 % (39.0-51.0) Random Glucose 148 MG/DL (74-106) Calcium Level 8.1 MG/DL (8.5-10.1) Family History Mother and father non contributory Social History Quit smoking over 25 years ago ETOH: daily up to 4 drinks per day 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 Systems All other ROS: ROS reviewed as documented in chart Past Family Social History Allergies: Coded Allergies: Sudafed (Verified Allergy, Severe, swelling, 12/18/16) Sulfa (Verified Allergy, Severe, 12/18/16) Active Ordered Medications Current Medications Medications (Trade) Dose Ordered Sig/Sandhya Route Start Time Stop Time Status Last Admin (NS Flush) 2 ml UNSCH PRN IV FLUSH 12/19/16 00:00 (NS Flush) 2 ml BID IV FLUSH 12/19/16 09:00 12/20/16 08:47 (Tylenol) 650 mg Q4H PRN PO 12/19/16 00:00 (Narcan Inj) 0.4 mg UNSCH PRN IV 12/19/16 00:00 (Ecotrin Ec) 81 mg DAILY PO 12/19/16 09:00 12/20/16 08:48 (Lipitor) 20 mg HS PO 12/19/16 21:00 12/19/16 19:49 (Coreg) 25 mg BID PO 12/19/16 09:00 12/20/16 08:48 (Lanoxin) 0.125 mg DAILY PO 12/19/16 09:00 12/20/16 08:48 (Effient) 10 mg DAILY PO 12/19/16 09:00 12/20/16 08:48 (Vasotec Inj) 2.5 mg Q4H PRN IV PUSH 12/19/16 19:30 12/20/16 16:52 (Oscal) 1,000 mg BID PO 12/20/16 09:00 12/20/16 08:47 (Norvasc) 10 mg DAILY PO 12/20/16 09:00 12/20/16 08:47 Exam I&O / VS 12/19/16 12/19/16 12/20/16 15:00 23:00 07:00 Intake Total 987 ml 850 ml 324 ml Output Total 850 ml 725 ml 400 ml Balance 137 ml 125 ml -76 ml Intake Oral 360 ml 360 ml 240 ml IV Total 627 ml 490 ml 84 ml Output Urine Total 850 ml 725 ml 400 ml # Bowel Movements 0 0 0 Vital Signs Date Time Temp Pulse Resp B/P Pulse Ox O2 Delivery O2 Flow Rate FiO2 12/20/16 12:00 97.7 61 18 160/72 12/20/16 08:00 97.7 60 15 182/87 94 12/20/16 07:00 Room Air 12/20/16 06:00 62 12/20/16 04:00 98.1 60 18 159/74 94 12/20/16 04:00 60 12/20/16 02:00 60 12/20/16 00:00 98.3 60 18 156/70 93 12/20/16 00:00 60 12/19/16 22:00 60 12/19/16 20:15 94 21 12/19/16 20:00 60 12/19/16 20:00 98.3 60 21 160/71 95 12/19/16 19:00 95 Room Air 12/19/16 18:00 60 General: Alert and Oriented, No acute distress Eye: EOMI Respiratory: Non-labored respirations Cardiology: Normal rate Neurologic: Alert, Oriented, Normal sensory, Normal motor, No focal defects, CN II-XII intact, Gag reflex normal, Normal DTR's Psychiatric: Cooperative, Appropriate mood & affect, Normal judgement, Non- suicidal Exam Comments alert, he just finished eating a snickers bar. ox 2-3. not to exact month/date. states this is not unusual for him. 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
[2016-12-20] MEDS ORDERED: IOHEXOL 350 MG/ML 10 ML VIAL (for RAD DIAG) IV ONE (18:41)
--- NOTE | 2016-12-20 18:48 | RADRPT ---
EXAM DATE/TIME: 12/20/2016 18:29 [facility] COMPARISON: CT BRAIN W/O CONTRAST, December 18, 2016, 21:58. INDICATIONS : Altered mental status. Evaluate for stroke. IV CONTRAST: 100 cc Omnipaque 350 (iohexol) IV RADIATION DOSE: 48.11 CTDIvol (mGy) MEDICAL HISTORY : Cardiovascular disease. Hypertension. SURGICAL HISTORY : Pacemaker. ENCOUNTER: Initial ACUITY: 1 day PAIN SCALE: 0/10 LOCATION: cranial TECHNIQUE: Multiple contiguous axial images were obtained of the head. Using automated exposure control and adj ustment of the mA and/or kV according to patient size, radiation dose was kept as low as reasonably a chievable to obtain optimal diagnostic quality images. FINDINGS: CEREBRUM: Atrophic changes again noted with sulcal and ventricular prominence which is stable. No evidence of m idline shift, cerebral edema or blood products. No extra-axial fluid collections are seen. POSTERIOR FOSSA: The cerebellum and brainstem are intact. The 4th ventricle is midline. The cerebellar pontine angle is unremarkable. EXTRACRANIAL: The visualized portion of the orbits is intact. The coastal thickening is noted in the right maxillar y sinus. SKULL: The calvaria is intact. No evidence of skull fracture. POST CONTRAST: No abnormal areas of parenchymal or dural enhancement. No evidence of blood-brain barrier breakdown. CONCLUSION: 1. No acute hemorrhage, mass or evidence of acute infarction. 2. Atrophic change again noted. Rock Adkins MD on December 20, 2016 at 18:45 Board Certified Radiologist. This report was verified electronically.
[2016-12-20] MEDS: ATORVASTATIN 20 MG TAB PO SCH (20:54)
[2016-12-20] MEDS: ENALAPRIL MALEATE 2.5 MG TAB PO SCH (23:04)
[2016-12-21] VITALS (12 sets, daily range): BP systolic 126–170; BP diastolic 63–86; PULSE 60–65; RESP 20–30; TEMP 97.8–98.5; O2SAT 93–96
[2016-12-21] MEDS: ENALAPRILAT 2.5 MG/2 ML VIAL IV PUSH PRN (04:13)
[2016-12-21 04:57] LABS: BICARBONATE 27.8 MEQ/L (21.0-32.0); POTASSIUM 3.6 MEQ/L (3.5-5.1)
[2016-12-21 06:10] LABS: BASOPHIL # 0.1 TH/MM3 (0-0.2); BASOPHIL % 0.6 % (0.0-2.0); EOSINOPHIL # 0.3 TH/MM3 (0-0.4); EOSINOPHIL % 2.6 % (0.0-4.0); HEMO FLAGS DIFF FINAL; LYMPH % 24.2 % (9.0-44.0); LYMPHOCYTE # 2.6 TH/MM3 (1.0-4.8); MEAN CELL VOLUME 88.8 FL (80.0-100.0); MEAN CORPUSCULAR HEMOGLOBIN 30.1 PG (27.0-34.0); MEAN CORPUSCULAR HGB CONC 33.9 % (32.0-36.0); MONO % 8.1 % (0.0-8.0); NEUT % 64.5 % (16.0-70.0); PLATELET COUNT 255 TH/MM3 (150-450); RED BLOOD COUNT 4.84 MIL/MM3 (4.50-5.90); RED CELL DISTRIBUTION WIDTH 13.5 % (11.6-17.2); WHITE BLOOD COUNT 10.8 TH/MM3 (4.0-11.0)
[2016-12-21] MEDS: DIGOXIN 0.125 MG TAB PO SCH (09:04)
[2016-12-21] MEDS: SODIUM CHLORIDE 0.9% FLUSH 10 ML FLUSH IV FLUSH SCH ×2 (09:04→20:10)
[2016-12-21] MEDS: ENALAPRIL MALEATE 2.5 MG TAB PO SCH (09:04)
[2016-12-21] MEDS: ASPIRIN EC 81 MG TABEC PO SCH (09:04)
[2016-12-21] MEDS: CALCIUM CARBONATE 1.25 GM (CA 500 MG) TAB PO SCH ×2 (09:04→20:10)
[2016-12-21] MEDS: CARVEDILOL 12.5 MG TAB PO SCH ×2 (09:04→20:10)
[2016-12-21] MEDS: PRASUGREL 10 MG TAB PO SCH (09:04)
--- NOTE | 2016-12-21 10:40 | PD.CONS ---
HPI Service Cardiology Consult Requested By ICU Reason for Consult ?AFib Primary Care Physician Fredo Gandara M.D. History of Present Illness 76 y/o M with pmhx of CAD s/p PCI 2006, LV systolic dysfunction EF 35% s/p AICD , prostate cancer with mets admitted with confusion ? stroke vs TIA. Cardiology consulted for atrial fibrillation. He denies chest pain, SOB, PND, palpitations , leg edema. EKG normal sinus rhythm. Telemetry underlying sinus rhythm with episodes of PVC's. Review of Systems Consitutional: DENIES: Fatigue, Fever, Chills, Weight gain, Weight loss Eyes: DENIES: Amaurosis Fugax, Change in vision HEENT: DENIES: Lightheadedness, Change in hearing Respiratory: DENIES: See HPI, Cough, Snoring, Shortness of breath, Wheezing, Sputum production Cardiovascular: DENIES: See HPI, Chest pain, Palpitations, Syncope, Tachycardia Gastrointestinal: DENIES: Nausea, Vomiting, Change in bowel habits, Reflux, Bloody stools, Melena Genitourinary: DENIES: Urinary incontinence, Difficulty voiding Integumentary: DENIES: Rash Neurologic: DENIES: Tingling or numbness, Memory problems, Poor Balance, Stroke symptoms Musculoskeletal: DENIES: Joint pain, Muscle pain, Limited range of motion, Back pain Psychiatric: DENIES: Anxiety, Depression, Sleep disturbances Hematologic: DENIES: Bruising tendencies, Bleeding tendencies Endocrine: DENIES: Weight gain, Weight loss, Thyroid disease Past Family Social History Allergies: Coded Allergies: Sudafed (Verified Allergy, Severe, swelling, 12/18/16) Sulfa (Verified Allergy, Severe, 12/18/16) Past Medical History CAD AICD Reported Medications Reported Meds & Active Scripts Active Amlodipine (Amlodipine Besylate) 10 Mg Tab 10 Mg PO DAILY Reported Digoxin 0.125 Mg Tab 0.125 Mg PO DAILY Atorvastatin (Atorvastatin Calcium) 20 Mg Tab 20 Mg PO HS Effient (Prasugrel) 10 Mg Tab 10 Mg PO DAILY Carvedilol 25 Mg Tab 25 Mg PO BID Ibuprofen 200 Mg Tab 200 Mg PO Q6H PRN Aspirin 81 Mg Tabdr 81 Mg PO DAILY [place]-3 Fish Oil/Vitamin (Fish Oil-Cholecalciferol) 1,000-1,000 Mg Cap 1 Cap PO DAILY Calcium 600 with Vitamin D (Calcium Carbonate-Cholecalciferol) 600-400 mg-Unit Tab 1 Tab PO DAILY Active Ordered Medications Current Medications Medications (Trade) Dose Ordered Sig/Sandhya Route Start Time Stop Time Status Last Admin (NS Flush) 2 ml UNSCH PRN IV FLUSH 12/19/16 00:00 (NS Flush) 2 ml BID IV FLUSH 12/19/16 09:00 12/21/16 09:04 (Tylenol) 650 mg Q4H PRN PO 12/19/16 00:00 (Narcan Inj) 0.4 mg UNSCH PRN IV 12/19/16 00:00 (Ecotrin Ec) 81 mg DAILY PO 12/19/16 09:00 12/21/16 09:04 (Lipitor) 20 mg HS PO 12/19/16 21:00 12/20/16 20:54 (Coreg) 25 mg BID PO 12/19/16 09:00 12/21/16 09:04 (Lanoxin) 0.125 mg DAILY PO 12/19/16 09:00 12/21/16 09:04 (Effient) 10 mg DAILY PO 12/19/16 09:00 12/21/16 09:04 (Vasotec Inj) 2.5 mg Q4H PRN IV PUSH 12/19/16 19:30 12/21/16 04:13 (Oscal) 1,000 mg BID PO 12/20/16 09:00 12/21/16 09:04 (Norvasc) 10 mg DAILY PO 12/20/16 09:00 12/21/16 09:04 (Vasotec) 2.5 mg BID PO 12/20/16 21:00 12/21/16 09:04 Family History Noncontributory Social History No alcohol No illicit drug use No tobacco Physical Exam Vital Signs Vital Signs Date Time Temp Pulse Resp B/P Pulse Ox O2 Delivery O2 Flow Rate FiO2 12/21/16 10:00 60 12/21/16 08:00 60 12/21/16 08:00 98.4 60 20 160/81 94 12/21/16 07:15 Room Air 12/21/16 06:00 61 12/21/16 04:00 98.0 60 30 158/78 93 12/21/16 04:00 60 12/21/16 02:00 60 12/21/16 00:00 60 12/21/16 00:00 98.5 60 23 170/86 96 12/20/16 22:00 60 12/20/16 20:46 96 21 12/20/16 20:00 65 12/20/16 20:00 98.0 65 27 182/79 96 12/20/16 19:00 Room Air 12/20/16 16:00 97.7 68 20 174/88 99 12/20/16 12:00 97.7 61 18 160/72 Physical Exam GENERAL: Well-nourished, well-developed patient. SKIN: Warm and dry. HEAD: Normocephalic. EYES: No scleral icterus. No injection or drainage. NECK: Supple, trachea midline. No JVD or lymphadenopathy. CARDIOVASCULAR: Regular rate and rhythm without murmurs, gallops, or rubs. RESPIRATORY: Breath sounds equal bilaterally. No accessory muscle use. GASTROINTESTINAL: Abdomen soft, non-tender, nondistended. EXTREMITIES: No cyanosis, or edema. Laboratory Laboratory Tests Test 12/21/16 03:18 White Blood Count 10.8 Red Blood Count 4.84 Hemoglobin 14.6 Hematocrit 43.0 Mean Corpuscular Volume 88.8 Mean Corpuscular Hemoglobin 30.1 Mean Corpuscular Hemoglobin 33.9 Concent Red Cell Distribution Width 13.5 Platelet Count 255 Mean Platelet Volume 7.7 Neutrophils (%) (Auto) 64.5 Lymphocytes (%) (Auto) 24.2 Monocytes (%) (Auto) 8.1 Eosinophils (%) (Auto) 2.6 Basophils (%) (Auto) 0.6 Neutrophils # (Auto) 7.0 Lymphocytes # (Auto) 2.6 Monocytes # (Auto) 0.9 Eosinophils # (Auto) 0.3 Basophils # (Auto) 0.1 CBC Comment DIFF FINAL Differential Comment Sodium Level 138 Potassium Level 3.6 Chloride Level 102 Carbon Dioxide Level 27.8 Anion Gap 8 Blood Urea Nitrogen 10 Creatinine 0.60 Estimat Glomerular Filtration 131 Rate Random Glucose 94 Calcium Level 8.4 Result Diagram: 12/21/168 12/21/168 Imaging Last Impressions Head CT 12/20/16 0000 Signed Impressions: Service Date/Time: Tuesday, December 20, 2016 18:29 - CONCLUSION: 1. No acute hemorrhage, mass or evidence of acute infarction. 2. Atrophic change again noted. Rock Adkins MD Chest X-Ray 12/18/16 [id number] Signed Impressions: Service Date/Time: Sunday, December 18, 2016 23:20 - CONCLUSION: 1. Cardiomegaly and findings of vascular congestion without overt failure. Cosme Hicks MD Neck CTA [id number]/[id number] Signed Impressions: Service Date/Time: Sunday, December 18, 2016 22:03 - CONCLUSION: 1. Mild right and minimal left atherosclerosis of the carotid bifurcations without significant narrowing. 2. No dissection or thrombosis. 3. Mild and very focal atherosclerosis involving the origins of both vertebral arteries without evidence of significant narrowing. The left vertebral artery is dominant. Wisam Harper MD Head CTA [id number]/[id number] Signed Impressions: Service Date/Time: Sunday, December 18, 2016 22:03 - CONCLUSION: Normal intracranial arteries. No thrombosis. Wisam Harper MD Assessment and Plan Problem List: (1) CHF (congestive heart failure) Assessment and Plan: 76 y/o M with CAD and LV dysfunction s/p AICD. Consulted for afib. Telemetry underlying sinus rhtyhm with occasional PVC's and NSVT. Afebrile and hemodynamically stable. No CV complaints Recommendations: -AICD interrogation -Cont home CV medications -Avoid electrolytes abnormalities -F/U with Dr. Yarbrough as outpatient Sign off (2) Hyperlipidemia (3) Hypertension (4) Hypertensive encephalopathy (5) Altered mental status Problem Qualifiers (1) CHF (congestive heart failure): (2) Hyperlipidemia: Qualified Code: E78.5 - Hyperlipidemia, unspecified hyperlipidemia type (3) Hypertension: Qualified Code: I10 - Essential hypertension (4) Altered mental status: Qualified Code: R41.0 - Delirium Prashanth Garcia MD December 21, 2016 10:40
--- NOTE | 2016-12-21 12:22 | EC ---
Study Study Date:12/21/2016 STUDY CONCLUSIONS SUMMARY - Procedure narrative: Transthoracic echocardiography. Image quality was poor. The study was technically limited due to poor acoustic window availability. Scanning was performed from the parasternal, apical, and subcostal acoustic windows. - Left ventricle: The cavity size was mildly dilated. Wall thickness was normal. Systolic function was mildly to moderately reduced by visual assessment. The estimated ejection fraction was in the range of 40% to 45%. - Aortic valve: Valve area: 2.98cm^2 (Vmax). If LV function is below 40, please consider prescribing an ACEI or ARB or document rationale for non-use. PROCEDURE DATA STUDY STATUS: Elective. Procedure: Transthoracic echocardiography. Image quality was poor. The study was technically limited due to poor acoustic window availability. Scanning was performed from the parasternal, apical, and subcostal acoustic windows. Study completion: The patient tolerated the procedure well. Transthoracic echocardiography. M-mode, complete 2D, complete spectral Doppler, and color Doppler. Height: Height: 71in. Weight: Weight: 179.6lb. Body mass index: BMI: 25.1kg/m^2. Body surface area: BSA: 2.02m^2. Patient status: Inpatient. CARDIAC ANATOMY LEFT VENTRICLE: Not well visualized. The cavity size was mildly dilated. Wall thickness was normal. Systolic function was mildly to moderately reduced by visual assessment. The estimated ejection fraction was in the range of 40% to 45%. Images were inadequate for LV wall motion assessment. AORTIC VALVE: Poorly visualized. Trileaflet; normal thickness leaflets. Doppler: Transvalvular velocity was within the normal range. There was no stenosis. No regurgitation. Valve area: 2.98cm^2 (Vmax). Indexed valve area: 1.48cm^2/m^2 (Vmax). AORTA: Aortic root: The aortic root was normal in size. MITRAL VALVE: Poorly visualized. Structurally normal valve. Doppler: Transvalvular velocity was within the normal range. There was no evidence for stenosis. No regurgitation. LEFT ATRIUM: The atrium was normal in size. RIGHT VENTRICLE: The cavity size was normal. Wall thickness was normal. Pacer wire or catheter noted in right ventricle. PULMONIC VALVE: Doppler: Transvalvular velocity was within the normal range. There was no evidence for stenosis. No regurgitation. TRICUSPID VALVE: Structurally normal valve. Doppler: Transvalvular velocity was within the normal range. No regurgitation. PULMONARY ARTERY: Not visualized. Systolic pressure could not be accurately estimated. RIGHT ATRIUM: The atrium was normal in size. PERICARDIUM: There was no pericardial effusion. SYSTEMIC VEINS: Inferior vena cava: The vessel was normal in size. Patient weight: 179.6lb _Ejection fraction:_ 65-75% _Fractional shortening:_ 32% up to 5Kg 5-11.5Kg 11.6-22.9Kg 23-45Kg 45-57Kg Aortic Root 7-13 <17 13-22 17-27 17-27 LA diam 6-13 <23 24-38 33-47 37-40 RVID 10-17 7-15 7-15 7-18 8-17 LVIDd 12-22 <32 24-38 33-47 37-40 LVPW 2-4 3-6 5-7 6-8 7-8 IVS 2-4 3-6 5-7 6-8 7-8 BASIC MEASUREMENTS ADULT NORMAL Left ventricle LV internal dimension, ED, chordal *52.2 mm 43-52 level, PLAX LV internal dimension, ES, chordal *38.2 mm 23-38 level, PLAX Fractional shortening, chordal level, *27 % >29 PLAX LV posterior wall thickness, ED 11.4 mm IVS/LVPW ratio, ED 1.02 <1.3 Ventricular septum Septal thickness, ED 11.6 mm Aortic valve Leaflet separation 17 mm 15-26 BASIC MEASUREMENTS ADULT NORMAL Aortic valve Leaflet separation 17 mm 15-26 Aorta Root diameter, ED 27 mm 20-37 Left atrium Anterior-posterior dimension, ES 34 mm 19-40 Anterior-posterior dimension index, ES 1.68 cm/m^2 <2.2 LA/aortic root ratio 1.26 DOPPLER MEASUREMENTS ADULT NORMAL Aortic valve Peak velocity, S 136 cm/s Valve area, Vmax 2.98 cm^2 Valve area index, Vmax 1.48 cm^2/m^2 Mitral valve Peak E-wave velocity 49.9 cm/s Peak A-wave velocity 83.9 cm/s Deceleration time *261 ms 150-230 Peak E/A ratio 0.6 Pulmonic valve Peak velocity, S 84.2 cm/s LEGEND: Mean values are shown as u=mean value. Asterisk (*) hoffmann values outside specified normal range. Prepared and signed by Shaka Cosme [id number]
--- NOTE | 2016-12-21 12:32 | HHI.PR ---
Subjective Remarks Patient seen at bedside. In good spirits. VSS and afebrile. Denies any CP or SOB. Speech clear Objective Vital Signs Date Time Temp Pulse Resp B/P Pulse Ox O2 Delivery O2 Flow Rate FiO2 12/21/16 10:00 60 12/21/16 08:00 60 12/21/16 08:00 98.4 60 20 160/81 94 12/21/16 07:15 Room Air 12/21/16 06:00 61 12/21/16 04:00 98.0 60 30 158/78 93 12/21/16 04:00 60 12/21/16 02:00 60 12/21/16 00:00 60 12/21/16 00:00 98.5 60 23 170/86 96 12/20/16 22:00 60 12/20/16 20:46 96 21 12/20/16 20:00 65 12/20/16 20:00 98.0 65 27 182/79 96 12/20/16 19:00 Room Air 12/20/16 16:00 97.7 68 20 174/88 99 I/O 12/20/16 12/20/16 12/20/16 12/21/16 12/21/16 12/21/16 07:00 15:00 23:00 07:00 15:00 23:00 Intake Total 324 ml 550 ml 480 ml 0 ml Output Total 400 ml 1000 ml 1600 ml 525 ml Balance -76 ml -450 ml -1120 ml -525 ml Intake Oral 240 ml 450 ml 480 ml 0 ml IV Total 84 ml 100 ml Output Urine Total 400 ml 1000 ml 1600 ml 525 ml # Bowel Movements 0 3 1 0 Result Diagram: 12/21/16 0318 12/21/16 0318 Imaging Last [address] 12/20/16 0000 Signed Impressions: Service Date/Time: Tuesday, December 20, 2016 18:29 - CONCLUSION: 1. No acute hemorrhage, mass or evidence of acute infarction. 2. Atrophic change again noted. Rock Adkins MD Chest X-Ray 12/18/16 [id number] Signed Impressions: Service Date/Time: Sunday, December 18, 2016 23:20 - CONCLUSION: 1. Cardiomegaly and findings of vascular congestion without overt failure. Cosme Hicks MD Neck CTA 5/1/2155 Signed Impressions: Service Date/Time: Sunday, December 18, 2016 22:03 - CONCLUSION: 1. Mild right and minimal left atherosclerosis of the carotid bifurcations without significant narrowing. 2. No dissection or thrombosis. 3. Mild and very focal atherosclerosis involving the origins of both vertebral arteries without evidence of significant narrowing. The left vertebral artery is dominant. Wisam Harper MD Head CTA 12/18/162155 Signed Impressions: Service Date/Time: Sunday, December 18, 2016 22:03 - CONCLUSION: Normal intracranial arteries. No thrombosis. Wisam Harper MD Objective Remarks GENERAL: alert and cooperative SKIN: Warm and dry. HEAD: Normocephalic. EYES: No scleral icterus. No injection or drainage. NECK: Supple, trachea midline. No JVD or lymphadenopathy. CARDIOVASCULAR: Regular rate and rhythm without murmurs, gallops, or rubs. RESPIRATORY: Breath sounds equal bilaterally. No accessory muscle use. GASTROINTESTINAL: Abdomen soft, non-tender, nondistended. MUSCULOSKELETAL: No cyanosis, or edema. BACK: Nontender without obvious deformity. No CVA tenderness. Medications and IVs Current Medications Medications (Trade) Dose Ordered Sig/Sandhya Route Start Time Stop Time Status Last Admin (NS Flush) 2 ml UNSCH PRN IV FLUSH 12/19/16 00:00 (NS Flush) 2 ml BID IV FLUSH 12/19/16 09:00 12/21/16 09:04 (Tylenol) 650 mg Q4H PRN PO 12/19/16 00:00 (Narcan Inj) 0.4 mg UNSCH PRN IV 12/19/16 00:00 (Ecotrin Ec) 81 mg DAILY PO 12/19/16 09:00 12/21/16 09:04 (Lipitor) 20 mg HS PO 12/19/16 21:00 12/20/16 20:54 (Coreg) 25 mg BID PO 12/19/16 09:00 12/21/16 09:04 (Lanoxin) 0.125 mg DAILY PO 12/19/16 09:00 12/21/16 09:04 (Effient) 10 mg DAILY PO 12/19/16 09:00 12/21/16 09:04 (Vasotec Inj) 2.5 mg Q4H PRN IV PUSH 12/19/16 19:30 12/21/16 04:13 (Oscal) 1,000 mg BID PO 12/20/16 09:00 12/21/16 09:04 (Norvasc) 10 mg DAILY PO 12/20/16 09:00 12/21/16 09:04 (Vasotec) 2.5 mg BID PO 12/20/16 21:00 12/21/16 09:04 Assessment and Plan Problem List: (1) Altered mental status Status: Acute Plan: Patient is alert and cooperative. Oriented to person and place. Neurology consulted repeat head CT ordered with no acute findings. (2) Hypertension Status: Acute Plan: B/P continues to be elevated at 160/80 amlodipine and vasotec added yesterday. Will titrate medication. [employer] consulted. Cardene gtt on admission (3) Hyperlipidemia Status: Acute Plan: continue statin. Lipid panel done (4) CHF (congestive heart failure) Status: Acute Plan: No SOB or edema. Defibrillator Assessment and Plan The exam, history, and the medical decision-making described in the above note were completed with the assistance of the mid-level provider. I reviewed and agree with the findings presented. I attest that I had a [id number]-[id number] encounter with the patient on the same day, and personally performed and documented my assessment and findings in the medical record.Assessment and plan discussed with Dr. Smyth Discussed Condition With Nursing Discharge Planning home with [facility] Physician Attestation Problem Qualifiers (1) Altered mental status: Qualified Code: R41.0 - Delirium (2) Hypertension: Qualified Code: I10 - Essential hypertension (3) Hyperlipidemia: Qualified Code: E78.5 - Hyperlipidemia, unspecified hyperlipidemia type (4) CHF (congestive heart failure): Francoise Hamilton December 21, 2016 12:32 Cullen Smyth DO December 21, 2016 22:52
[2016-12-21] MEDS ORDERED: CLOPIDOGREL 300 MG TAB PO ONE (15:00)
[2016-12-21] MEDS: ATORVASTATIN 20 MG TAB PO SCH (20:10)
[2016-12-21] MEDS: ENALAPRIL MALEATE 5 MG TAB PO SCH (20:10)
[2016-12-22 00:10] VITALS: BP 146/76; PULSE 61; RESP 16; TEMP 98; O2SAT 95
[2016-12-22 07:28] LABS: AUTOMATED NEUTROPHIL # 6.3 TH/MM3 (1.8-7.7); BASOPHIL # 0.1 TH/MM3 (0-0.2); BASOPHIL % 0.6 % (0.0-2.0); EOSINOPHIL # 0.2 TH/MM3 (0-0.4); HEMATOCRIT 40.7 % (39.0-51.0); HEMO FLAGS DIFF FINAL; LYMPH % 23.6 % (9.0-44.0); LYMPHOCYTE # 2.3 TH/MM3 (1.0-4.8); MEAN CELL VOLUME 88.3 FL (80.0-100.0); MONO % 8.2 % (0.0-8.0); NEUT % 65.6 % (16.0-70.0); PLATELET COUNT 273 TH/MM3 (150-450); RED BLOOD COUNT 4.61 MIL/MM3 (4.50-5.90); RED CELL DISTRIBUTION WIDTH 13.8 % (11.6-17.2); WHITE BLOOD COUNT 9.6 TH/MM3 (4.0-11.0)
--- NOTE | 2016-12-22 07:45 | MG ---
cc: NANY GRISSOM Lab No: [id number] Date: 12/22/2016 Age: Sex: M Hyperventilation not performed. Stroke Alert, expressive aphasia, confused, prostate cancer, metastasis to the right hip, MS, stents. Vasotec, aspirin. DESCRIPTION The recording shows a sharply contoured theta rhythm at epoch 21 over the left temporal frontal head region on the background of symmetric 10 Hz, 60 microvolt posterior rhythm that is seen on the transverse montage, seen primarily over the left mid temporal region on the bipolar montage. Another small sharp wave is seen over the left mid temporal region at epoch 65 with a field into the posterior and frontal head region on the left. One more sharp wave is seen in that region also. Photic stimulation was performed without significant posterior driving. IMPRESSION Some left temporal theta slowing with a few sharp waves there, could be a seizure focus, or left temporal frontal abnormality should be ruled out. Clinical correlation is needed. No spikes were noted. No prolonged seizure was seen. MD NELLY Priest/ELIANE /7:16 AM /7:41 AM
[2016-12-22 07:56] LABS: BICARBONATE 29.5 MEQ/L (21.0-32.0); POTASSIUM 3.7 MEQ/L (3.5-5.1)
[2016-12-22 08:00] VITALS: BP 139/74; PULSE 68; RESP 16; TEMP 96.3; O2SAT 95
--- NOTE | 2016-12-22 08:09 | HHI.PR ---
Review/Management Diagnosis/Plan: (1) Hypertensive encephalopathy Plan: etiology; htn encephalopathy vs tia vs sz vs med reaction to cancer drug improved on dual antiplatelets recs repeat ct brain with contrast- no change, stable eeg- mild changes in left temporal region; possibility of complex-partial sz; will start keppra 250mg po bid bp control-improved changed to plavix from effient needs f/u with his urologist d/c planning in am with better bp control no driving/climbing heights/swimming f/u with me in 1-2 weeks, d/w pt (2) Hypertension (3) CHF (congestive heart failure) (4) Hyperlipidemia Subjective Subjective Comments No acute events reported No headache No chest pain No dyspnea Active Medications Current Medications Medications (Trade) Dose Ordered Sig/Sandhya Route Start Time Stop Time Status Last Admin (NS Flush) 2 ml UNSCH PRN IV FLUSH 12/19/16 00:00 (NS Flush) 2 ml BID IV FLUSH 12/19/16 09:00 12/21/16 20:10 (Tylenol) 650 mg Q4H PRN PO 12/19/16 00:00 (Narcan Inj) 0.4 mg UNSCH PRN IV 12/19/16 00:00 (Ecotrin Ec) 81 mg DAILY PO 12/19/16 09:00 12/21/16 09:04 (Lipitor) 20 mg HS PO 12/19/16 21:00 12/21/16 20:10 (Coreg) 25 mg BID PO 12/19/16 09:00 12/21/16 20:10 (Lanoxin) 0.125 mg DAILY PO 12/19/16 09:00 12/21/16 09:04 (Vasotec Inj) 2.5 mg Q4H PRN IV PUSH 12/19/16 19:30 12/21/16 04:13 (Oscal) 1,000 mg BID PO 12/20/16 09:00 12/21/16 20:10 (Norvasc) 10 mg DAILY PO 12/20/16 09:00 12/21/16 09:04 (Vasotec) 5 mg BID PO 12/21/16 21:00 12/21/16 20:10 (Plavix) 75 mg DAILY PO 12/22/16 09:00 Allergies Allergies Coded Allergies Sudafed (Verified Allergy, Severe, swelling, 5/1/17) Sulfa (Verified Allergy, Severe, 12/18/16) Review of Systems All other ROS: ROS reviewed as documented in chart Exam I&O / VS 12/21/16 12/21/16 12/22/16 15:00 23:00 07:00 Intake Total 450 ml 480 ml 360 ml Balance 450 ml 480 ml 360 ml Intake Oral 450 ml 480 ml 360 ml IV Total 0 ml # Voids 4 2 1 # Bowel Movements 0 Vital Signs Date Time Temp Pulse Resp B/P Pulse Ox O2 Delivery O2 Flow Rate FiO2 12/22/16 00:10 98.0 61 16 146/76 95 12/21/16 20:03 95 21 12/21/16 20:00 98.2 65 22 151/73 96 12/21/16 19:00 96 Room Air 12/21/16 18:00 61 12/21/16 16:00 60 12/21/16 16:00 97.9 60 23 139/68 96 12/21/16 14:00 60 12/21/16 12:00 61 12/21/16 12:00 97.8 61 20 126/63 96 12/21/16 10:00 60 General: Alert and Oriented, No acute distress Eye: EOMI Respiratory: Non-labored respirations Cardiology: Normal rate Neurologic: Alert, Oriented, Normal sensory, Normal motor, No focal defects, CN II-XII intact, Gag reflex normal, Normal DTR's Psychiatric: Cooperative, Appropriate mood & affect, Normal judgement, Non- suicidal Exam Comments alert, ox 2-3. not to exact month, correct on 2nd attempt, pcp pres Trinidad Smyth, eomi, vff, face sym, no focal weakness, no drift Objective Micro and Labs Laboratory Tests Test 12/22/16 06:44 White Blood Count 9.6 Red Blood Count 4.61 Hemoglobin 13.8 Hematocrit 40.7 Mean Corpuscular Volume 88.3 Mean Corpuscular Hemoglobin 30.0 Mean Corpuscular Hemoglobin 34.0 Concent Red Cell Distribution Width 13.8 Platelet Count 273 Mean Platelet Volume 7.8 Neutrophils (%) (Auto) 65.6 Lymphocytes (%) (Auto) 23.6 Monocytes (%) (Auto) 8.2 Eosinophils (%) (Auto) 2.0 Basophils (%) (Auto) 0.6 Neutrophils # (Auto) 6.3 Lymphocytes # (Auto) 2.3 Monocytes # (Auto) 0.8 Eosinophils # (Auto) 0.2 Basophils # (Auto) 0.1 CBC Comment DIFF FINAL Differential Comment Sodium Level 141 Potassium Level 3.7 Chloride Level 104 Carbon Dioxide Level 29.5 Anion Gap 8 Blood Urea Nitrogen 15 Creatinine 0.64 Estimat Glomerular Filtration 122 Rate Random Glucose 97 Calcium Level 8.4 Problem Qualifiers (1) Hypertension: Qualified Code: I10 - Essential hypertension (2) CHF (congestive heart failure): (3) Hyperlipidemia: Qualified Code: E78.5 - Hyperlipidemia, unspecified hyperlipidemia type Jun Ibrahim MD December 22, 2016 08:09
[2016-12-22] MEDS: DIGOXIN 0.125 MG TAB PO SCH (08:35)
[2016-12-22] MEDS: ASPIRIN EC 81 MG TABEC PO SCH (08:35)
[2016-12-22] MEDS: SODIUM CHLORIDE 0.9% FLUSH 10 ML FLUSH IV FLUSH SCH (08:36)
[2016-12-22] MEDS: ENALAPRIL MALEATE 5 MG TAB PO SCH (08:36)
[2016-12-22] MEDS: CALCIUM CARBONATE 1.25 GM (CA 500 MG) TAB PO SCH (08:36)
[2016-12-22] MEDS: CARVEDILOL 12.5 MG TAB PO SCH (08:36)
[2016-12-22] MEDS ORDERED: CLOPIDOGREL 75 MG TAB PO SCH (09:00)
[2016-12-22] MEDS ORDERED: levETIRAcetam 250 MG TAB PO SCH (09:00)
[2016-12-22] MEDS ORDERED: AMLO10 PO (11:06)
[2016-12-22] MEDS ORDERED: PLAV75TA29 PO (11:06)
[2016-12-22] MEDS ORDERED: LEVE250 PO (11:06)
[2016-12-22] MEDS ORDERED: ENAL5TAB PO (11:06)
[2016-12-22] MEDS ORDERED: OYST500T11 PO (11:06)
--- NOTE | 2016-12-22 11:14 | HHI.DS ---
MiguellisaFrancoiseJimena [facility] 12/22/16 1114: Discharge Summary Admission Date December 18, 2016 at 23:19 Discharge Date: December 22, 2016 Admitting Diagnosis AMS, Delirium (1) Hypertensive encephalopathy (2) Altered mental status (3) Hypertension (4) Hyperlipidemia (5) CHF (congestive heart failure) Brief History The patient is a 76 year old male who presents to the [facility] emergency department due to onset of reported expressive aphasia 2 hours prior to arrival according to records the patient's reported that he has not been well over the last 2 days. He has been confused. He has had a reported headache along the left hindu and nausea. 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 Patient has a history of coronary artery disease status post stent placement and is on an adult aspirin daily and Effient. The patient's blood pressure prior to arrival to ER was reportedly 204/106. The The patient is awake and alert oriented except for year. The patient denies any recent fevers, cough, congestion, neck pain, chest pain, shortness of breath, abdominal pain, vomiting, diarrhea, urinary symptoms, or other neurologic symptoms. CBC/BMP: 12/22/16 0644 12/22/16 0644 Significant Findings Laboratory Tests Test 12/20/16 12/21/16 12/22/16 03:32 03:18 06:44 Red Blood Count 4.34 MIL/MM3 (4.50-5.90) Hematocrit 38.1 % (39.0-51.0) Monocytes (%) (Auto) 8.5 % (0.0-8.0) 8.1 % (0.0-8.0) 8.2 % (0.0-8.0) Chloride Level 108 MEQ/L (98-107) Calcium Level 7.6 MG/DL 8.4 MG/DL 8.4 MG/DL (8.5-10.1) (8.5-10.1) (8.5-10.1) Phosphorus Level 2.3 MG/DL (2.5-4.9) Cholesterol Level 112 MG/DL (120-200) HDL Cholesterol 33.4 MG/DL (40.0-60.0) PE at Discharge GENERAL: alert and cooperative SKIN: Warm and dry. HEAD: Normocephalic. EYES: No scleral icterus. No injection or drainage. NECK: Supple, trachea midline. No JVD or lymphadenopathy. CARDIOVASCULAR: Regular rate and rhythm without murmurs, gallops, or rubs. RESPIRATORY: Breath sounds equal bilaterally. No accessory muscle use. GASTROINTESTINAL: Abdomen soft, non-tender, nondistended. MUSCULOSKELETAL: No cyanosis, or edema. BACK: Nontender without obvious deformity. No CVA tenderness. Hospital Course The patient is a 76 year old male who presents to the [facility] emergency department due to onset of reported expressive aphasia 2 hours prior to arrival according to records the patient's reported that he has not been well over the last 2 days. He has been confused. He has had a reported headache along the left hindu and nausea. 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 Patient has a history of coronary artery disease status post stent placement and is on an adult aspirin daily and Effient. The patient's blood pressure prior to arrival to ER was reportedly 204/106. Head CT with no acute changes. EEG - mild changes in left temporal region; possibility of complex-partial sz; keppra 250mg po bid started. Amlodipine and Vasotec added to medication regimen with better Blood pressure control. Patient is alert and oriented X 3 this am and speech is clear. Patient will need to follow up primary, neurology and Urology. Pt Condition on Discharge: Good Discharge Disposition: Disch w/ Home Health Serv Discharge Instructions DIET: Follow Instructions for: Heart Healthy Diet Activities you can perform: Regular-No Restrictions New Medications: Amlodipine (Norvasc) 10 Mg Tab 10 MG PO DAILY Blood Pressure Management #30 TAB Clopidogrel (Plavix) 75 Mg Tab 75 MG PO DAILY Blood Clot Prevention #30 TAB Enalapril (Enalapril) 5 Mg Tab 5 MG PO BID Blood Pressure Management #60 TAB Levetiracetam (Keppra) 250 Mg Tab 250 MG PO Q12H Seizure Control #60 TAB Oyster Shell (Oyster Shell Calcium) 500 Mg Tab 1000 MG PO BID Electrolyte Replacement #60 TAB Continued Medications: Aspirin (Aspirin) 81 Mg Tabdr 81 MG PO DAILY TAB Atorvastatin (Atorvastatin) 20 Mg Tab 20 MG PO HS Cholesterol Management #30 Ref 0 TAB Calcium Carbonate-Cholecalciferol (Calcium 600 with Vitamin D) 600-400 mg-Unit Tab 1 TAB PO DAILY Calcium Supplement Ref 0 TAB Carvedilol (Carvedilol) 25 Mg Tab 25 MG PO BID #60 Ref 0 TAB Digoxin (Digoxin) 0.125 Mg Tab 0.125 MG PO DAILY Regulate Heart Beat #30 Ref 0 TAB Fish Oil-Cholecalciferol ([place]-3 Fish Oil/Vitamin) 1,000-1,000 Mg Cap 1 CAP PO DAILY Nutritional Supplement Ref 0 CAP Ibuprofen (Ibuprofen) 200 Mg Tab 200 MG PO Q6H PRN PAIN SCALE 1 TO 10 Ref 0 TAB Discontinued Medications: Amlodipine (Amlodipine) 10 Mg Tab 10 MG PO DAILY Blood Pressure Management #30 Ref 0 TAB Prasugrel (Effient) 10 Mg Tab 10 MG PO DAILY Blood Clot Prevention #30 Ref 0 TAB Cullen Smyth DO 12/22/16 2326: Discharge Summary CBC/BMP: 12/22/1644 12/22/16 0644 Discharge Instructions New Medications: Amlodipine (Norvasc) 10 Mg Tab 10 MG PO DAILY Blood Pressure Management #30 TAB Clopidogrel (Plavix) 75 Mg Tab 75 MG PO DAILY Blood Clot Prevention #30 TAB Enalapril (Enalapril) 5 Mg Tab 5 MG PO BID Blood Pressure Management #60 TAB Levetiracetam (Keppra) 250 Mg Tab 250 MG PO Q12H Seizure Control #60 TAB Oyster Shell (Oyster Shell Calcium) 500 Mg Tab 1000 MG PO BID Electrolyte Replacement #60 TAB Continued Medications: Aspirin (Aspirin) 81 Mg Tabdr 81 MG PO DAILY TAB Atorvastatin (Atorvastatin) 20 Mg Tab 20 MG PO HS Cholesterol Management #30 Ref 0 TAB Calcium Carbonate-Cholecalciferol (Calcium 600 with Vitamin D) 600-400 mg-Unit Tab 1 TAB PO DAILY Calcium Supplement Ref 0 TAB Carvedilol (Carvedilol) 25 Mg Tab 25 MG PO BID #60 Ref 0 TAB Digoxin (Digoxin) 0.125 Mg Tab 0.125 MG PO DAILY Regulate Heart Beat #30 Ref 0 TAB Fish Oil-Cholecalciferol ([place]-3 Fish Oil/Vitamin) 1,000-1,000 Mg Cap 1 CAP PO DAILY Nutritional Supplement Ref 0 CAP Ibuprofen (Ibuprofen) 200 Mg Tab 200 MG PO Q6H PRN PAIN SCALE 1 TO 10 Ref 0 TAB Discontinued Medications: Amlodipine (Amlodipine) 10 Mg Tab 10 MG PO DAILY Blood Pressure Management #30 Ref 0 TAB Prasugrel (Effient) 10 Mg Tab 10 MG PO DAILY Blood Clot Prevention #30 Ref 0 TAB Additional Information The exam, history, and the medical decision-making described in the above note were completed with the assistance of the mid-level provider. I reviewed and agree with the findings presented. I attest that I had a [id number] encounter with the patient on the same day, and personally performed and documented my assessment and findings in the medical record. Francoise Hamilton December 22, 2016 11:14 Cullen Smyth DO December 22, 2016 23:26
[2016-12-22 12:00] VITALS: BP 118/58; PULSE 62; RESP 17; TEMP 96.6; O2SAT 92
== END 2016-12-22 15:30 | disposition home or self-care (01) | DRG 78 ==
LOC: NEPE 21:45 → NEDA 23:19 → N03A 12-19 01:30 → N06A 12-21 20:29
PROVIDERS: ADMIT Family Medicine; ATTEND Family Medicine
DX: I67.4 Hypertensive encephalopathy (principal); I47.2 Ventricular tachycardia; C79.51 Secondary malignant neoplasm of bone; I42.9 Cardiomyopathy, unspecified; I50.9 Heart failure, unspecified; I48.91 Unspecified atrial fibrillation; R47.01 Aphasia; I25.10 Atherosclerotic heart disease of native coronary artery without angina pectoris; Z95.5 Presence of coronary angioplasty implant and graft; Z95.810 Presence of automatic (implantable) cardiac defibrillator; Z79.82 Long term (current) use of aspirin; E78.5 Hyperlipidemia, unspecified; I25.2 Old myocardial infarction; M19.90 Unspecified osteoarthritis, unspecified site; H91.93 Unspecified hearing loss, bilateral; Z88.2 Allergy status to sulfonamides; Z88.8 Allergy status to other drugs, medicaments and biological substances; E78.00 Pure hypercholesterolemia, unspecified; I10 Essential (primary) hypertension; Z85.46 Personal history of malignant neoplasm of prostate; I49.3 Ventricular premature depolarization
CPT/HCPCS: 70450; 70470; 70496; 70498; 71010; 80048; 80053; 80061; 80076; 80307; 81001; 82140; 82435; 82550; 82565; 82947; 83036; 83735; 84100; 84132; 84295; 84484; 84520; 85025; 85384; 85610; 85730; 86850; 86900; 86901; 87641; 93005; 93306; 95819; 96374; 96375; J2270; J2405; J7030; J7050; P9612; Q9967